=== PATIENT | male | born 1965 | race African-American/Black ===

== ENCOUNTER 2017-10-17 18:21 | Emergency (ER) | payer OTHER ==
[~2017-10-17] VITALS: Ht 177.8 cm; Wt 184.6 kg
[~2017-10-17 18:21] MED LIST: GLYB5TAB8
[2017-10-17 18:24] VITALS: BP 150/94
[2017-10-17 18:32] LABS: GLUCOSE,POINT OF CARE 209 MG/DL (70-110)
[2017-10-17] MEDS ORDERED: LISI-660 PO (18:33)
[2017-10-17] MEDS ORDERED: FURO20 PO (18:33)
[2017-10-17] MEDS ORDERED: ATOR10TA84 PO (18:33)
[2017-10-17] MEDS ORDERED: GABA-529 PO (18:33)
[2017-10-17] MEDS ORDERED: METO25 PO (18:33)
[2017-10-17] MEDS ORDERED: ASPI-556 PO (18:33)
[2017-10-17] MEDS ORDERED: KDUR10 PO (18:33)
[2017-10-17] MEDS ORDERED: HYDR-3291 PO (18:33)
[2017-10-17] MEDS ORDERED: METH10 PO (18:33)
[2017-10-17] MEDS ORDERED: TICA90TA PO (18:33)
== END 2017-10-17 19:15 | disposition left against medical advice (07) ==
LOC: EMS 18:22
DX: R07.9 Chest pain, unspecified (principal); R06.02 Shortness of breath; R42 Dizziness and giddiness; J45.909 Unspecified asthma, uncomplicated; E11.9 Type 2 diabetes mellitus without complications; Z53.21 Procedure and treatment not carried out due to patient leaving prior to being seen by health care provider
CPT/HCPCS: 93005; 99281

== ENCOUNTER 2025-01-08 10:39 | Inpatient (IN) | payer OTHER ==
[~2025-01-08] VITALS: Ht 177.8 cm; Wt 72.6 kg
[~2025-01-08 10:39] MED LIST changes: +ASPI-556 PO; +ATOR10TA PO; +FURO20TA5 PO; +GABA-1216 PO; -GLYB5TAB8; +GLYB5TAB8 PO; +HYDR-4398 PO; +LISI-892 PO; +METH10 PO; +METO25 PO; +POTA-92 PO; +TICA90TA PO
[2025-01-08 11:02] LABS: PLATELET COUNT (AUTO) 205 K/uL (150-450); RED BLOOD CELL COUNT(AUTO) 4.59 MIL/uL (4.50-5.90); RED CELL DISTRIBUTION WIDTH 14.0 % (11.5-14.5); WHITE BLOOD COUNT (AUTO) 5.0 K/uL (4.5-11.0)
[2025-01-08 11:10] LABS: CALCIUM, TOTAL 8.7 mg/dL (8.8-10.5); CREATININE 1.42 mg/dL (0.60-1.30); GLOMERULAR FILTR. RATE CALC > 60 mL/min (>60); GLUCOSE,RANDOM 131 mg/dL (70-110); SODIUM SERUM 142 mmol/L (136-145); UREA NITROGEN, BLOOD 18 mg/dL (7-18)
[2025-01-08 11:19] LABS: TROPONIN I-HIGH SENSITIVITY 14 ng/L (<76)
[2025-01-08] MEDS: MORPHINE SULFATE 4 MG/ML SYRINGE IVP ONE ×2 (11:24→13:04)
[2025-01-08] MEDS: ONDANSETRON HCL 4 MG/2 ML VIAL IVP ONE (11:24)
[2025-01-08] MEDS: METOPROLOL TARTRATE 25 MG TABLET PO ONE (11:38)
[2025-01-08] MEDS ORDERED: SODIUM CHLORIDE 0.9% 100 ML ONE (11:56)
[2025-01-08] MEDS ORDERED: IOHEXOL 350 MG/ML 100 ML VIAL ONE (11:56)
[2025-01-08] MEDS: NITROGLYCERIN 0.4 MG SUBLINGUAL TABLET #25 SL ONE (12:20)
[2025-01-08] MEDS: NITROGLYCERIN 2% (1 GM=INCH) OINTMENT PACKET TP ONE (12:20)
[2025-01-08] MEDS: SODIUM CHLORIDE 0.9% 250 ML IV ONE (12:23)
[2025-01-08 13:11] LABS: ASPARTATE AMINOTRANSFERASE 14.0 U/L (15-37); TOTAL PROTEIN, SERUM 7.6 g/dL (6.4-8.2)
[2025-01-08 13:16] LABS: TROPONIN I-HIGH SENSITIVITY 20 ng/L (<76)
[2025-01-08 17:00] VITALS: BP 111/79; PULSE 83; RESP 17; TEMP 97.3; O2SAT 99
[2025-01-08] MEDS: MORPHINE SULFATE 2 MG/ML SYRINGE IVP ONE ×2 (18:31→19:57)
[2025-01-08] MEDS ORDERED: ACETAMINOPHEN 325 MG TABLET PO PRN (18:45)
[2025-01-08] MEDS ORDERED: ONDANSETRON HCL 4 MG/2 ML VIAL IVP PRN (18:45)
[2025-01-08 20:00] VITALS: BP 149/98; PULSE 75; RESP 18; TEMP 97.5; O2SAT 95
[2025-01-08] MEDS: DOCUSATE SODIUM 100 MG CAPSULE PO SCH (20:04)
[2025-01-08] MEDS ORDERED: HEPARIN SODIUM,PORCINE 5,000 UNITS/ML VIAL IVP PRN ×2 (20:45)
[2025-01-08] MEDS: METOPROLOL TARTRATE 25 MG TABLET PO SCH (21:12)
[2025-01-08] MEDS: TICAGRELOR 90 MG TABLET PO SCH (21:13)
[2025-01-08 21:36] LABS: PLATELET COUNT (AUTO) 201 K/uL (150-450); RED BLOOD CELL COUNT(AUTO) 4.54 MIL/uL (4.50-5.90); RED CELL DISTRIBUTION WIDTH 13.9 % (11.5-14.5); WHITE BLOOD COUNT (AUTO) 5.9 K/uL (4.5-11.0)
[2025-01-08 21:51] LABS: TROPONIN I-HIGH SENSITIVITY 2808 ng/L (<76)
[2025-01-08] MEDS: HEPARIN SODIUM,PORCINE 5,000 UNITS/ML VIAL IVP ONE (22:07)
[2025-01-08] MEDS: HEPARIN SODIUM 25000 UNITS/D5W 250 ML IV PRN (22:08)
[2025-01-08] MEDS: MORPHINE SULFATE 2 MG/ML SYRINGE IVP PRN (23:31)
[2025-01-09] VITALS (9 sets, daily range): BP systolic 106–150; BP diastolic 60–87; PULSE 71–82; RESP 18–20; TEMP 97.3–98.7; O2SAT 96–100
[2025-01-09] MEDS ORDERED: HEPARIN SODIUM,PORCINE 5,000 UNITS/ML VIAL SQ SCH
[2025-01-09 06:32] LABS: PLATELET COUNT (AUTO) 200 K/uL (150-450); RED BLOOD CELL COUNT(AUTO) 4.52 MIL/uL (4.50-5.90); RED CELL DISTRIBUTION WIDTH 13.7 % (11.5-14.5); WHITE BLOOD COUNT (AUTO) 6.0 K/uL (4.5-11.0)
[2025-01-09 06:45] LABS: CALCIUM, TOTAL 8.5 mg/dL (8.8-10.5); CREATININE 1.27 mg/dL (0.60-1.30); GLOMERULAR FILTR. RATE CALC > 60 mL/min (>60); GLUCOSE,RANDOM 142 mg/dL (70-110); SODIUM SERUM 138 mmol/L (136-145); UREA NITROGEN, BLOOD 16 mg/dL (7-18)
[2025-01-09] MEDS: HEPARIN SODIUM,PORCINE 5,000 UNITS/ML VIAL IVP PRN (06:49)
[2025-01-09 07:59] LABS: TROPONIN I-HIGH SENSITIVITY 3629 ng/L (<76)
[2025-01-09] MEDS ORDERED: DEXTROSE 50%-WATER 25 GM/50 ML SYRINGE IVP PRN (08:45)
[2025-01-09] MEDS: ATORVASTATIN CALCIUM 10 MG TABLET PO SCH (08:55)
[2025-01-09] MEDS ORDERED: METHADONE HCL 10 MG TABLET PO SCH (09:00)
[2025-01-09] MEDS: GABAPENTIN 100 MG CAPSULE PO SCH (09:04)
[2025-01-09] MEDS: POTASSIUM CHLORIDE 10 MEQ ER TABLET PO SCH (09:04)
[2025-01-09] MEDS: ASPIRIN 81 MG DR TABLET PO SCH (09:04)
[2025-01-09 11:55] LABS: GLUCOMETER DEV NAME(LOC) 5S.2D; GLUCOSE,POINT OF CARE 212 MG/DL (70-110)
[2025-01-09] MEDS ORDERED: LIDOCAINE/PF 1% 30 ML VIAL ONE (13:29)
[2025-01-09] MEDS ORDERED: HEPARIN SODIUM 1000 UNITS/NS 1,000 ML ONE (13:29)
[2025-01-09] MEDS ORDERED: SODIUM BICARBONATE 50 MEQ/50 ML VIAL ONE (13:29)
[2025-01-09] MEDS ORDERED: IOHEXOL 300 MG/ML 100 ML VIAL ONE (13:29)
[2025-01-09] MEDS ORDERED: VERAPAMIL HCL 2.5 MG/ML 2 ML VIAL ONE (13:31)
[2025-01-09] MEDS ORDERED: NITROGLYCERIN 50 MG/D5% WATER 250 ML ONE (13:31)
[2025-01-09] MEDS: HEPARIN SODIUM,PORCINE 1,000 UNITS/ML 10 ML VIAL IARTER ONE (13:54)
[2025-01-09] MEDS: VERAPAMIL HCL 2.5 MG/ML 2 ML VIAL IARTER ONE (13:54)
[2025-01-09] MEDS: NITROGLYCERIN/D5W 50 MG/250 ML IV BOTTLE IARTER ONE (13:55)
[2025-01-09] MEDS: IOHEXOL 300 MG/ML 50 ML VIAL IARTER ONE (13:56)
[2025-01-09] MEDS: HEPARIN SODIUM 1000 UNITS/NS 1,000 ML IARTER ONE (13:57)
[2025-01-09] MEDS: IOHEXOL 300 MG/ML 100 ML VIAL IARTER ONE (13:58)
[2025-01-09] MEDS: LIDOCAINE 1% 30 ML/SOD BICARB 8.4% 4 ML SQ ONE (13:58)
[2025-01-09] MEDS: METOPROLOL SUCCINATE 25 MG ER TABLET PO SCH (14:30)
[2025-01-10] VITALS: BP 139/79; PULSE 81; RESP 20; TEMP 98.6; O2SAT 98
[2025-01-10 04:00] VITALS: BP 141/76; PULSE 89; RESP 20; TEMP 98.2; O2SAT 96
[2025-01-10] MEDS: INSULIN LISPRO 100 UNITS/ML SQ PRN (05:49)
[2025-01-10 06:30] LABS: PLATELET COUNT (AUTO) 188 K/uL (150-450); RED BLOOD CELL COUNT(AUTO) 4.61 MIL/uL (4.50-5.90); RED CELL DISTRIBUTION WIDTH 14.0 % (11.5-14.5); WHITE BLOOD COUNT (AUTO) 6.9 K/uL (4.5-11.0)
[2025-01-10 06:52] LABS: ASPARTATE AMINOTRANSFERASE 126.0 U/L (15-37); CALCIUM, TOTAL 8.8 mg/dL (8.8-10.5); CREATININE 1.47 mg/dL (0.60-1.30); GLOMERULAR FILTR. RATE CALC 60.0 mL/min (>60); GLUCOSE,RANDOM 149.0 mg/dL (70-110); SODIUM SERUM 139.0 mmol/L (136-145); TOTAL PROTEIN, SERUM 6.9 g/dL (6.4-8.2); UREA NITROGEN, BLOOD 21.0 mg/dL (7-18)
[2025-01-10 07:13] LABS: TROPONIN I-HIGH SENSITIVITY Greater than 25000 ng/L (<76)
[2025-01-10] MEDS ORDERED: HEPARIN SODIUM,PORCINE 5,000 UNITS/ML VIAL IVP PRN ×2 (07:45)
[2025-01-10 07:58] VITALS: BP 127/82; PULSE 82; RESP 18; TEMP 98; O2SAT 100
[2025-01-10] MEDS: ATORVASTATIN CALCIUM 40 MG TABLET PO SCH (08:34)
[2025-01-10] MEDS: HEPARIN SODIUM,PORCINE 5,000 UNITS/ML VIAL IVP ONE (08:37)
[2025-01-10] MEDS: HEPARIN SODIUM 25000 UNITS/D5W 250 ML IV PRN (08:40)
[2025-01-10] MEDS ORDERED: POTASSIUM CHL 10 MEQ/WATER 50 ML IV PRN (11:00)
[2025-01-10] MEDS ORDERED: POTASSIUM CHLORIDE 20 MEQ ER TABLET PO PRN (11:00)
[2025-01-10] MEDS ORDERED: ASPI-1444 PO (11:27)
[2025-01-10 11:36] VITALS: BP 127/66; PULSE 77; RESP 19; TEMP 98.2; O2SAT 99
[2025-01-10 12:21] LABS: GLUCOMETER DEV NAME(LOC) 5S.2D; GLUCOSE,POINT OF CARE 181 MG/DL (70-110)
[2025-01-10 12:21] LABS: GLUCOMETER DEV NAME(LOC) 5S.2D; GLUCOSE,POINT OF CARE 180 MG/DL (70-110)
[2025-01-10 12:21] LABS: GLUCOMETER DEV NAME(LOC) 5S.2D; GLUCOSE,POINT OF CARE 188 MG/DL (70-110)
[2025-01-10] MEDS ORDERED: ATOR40TA71 PO (12:48)
[2025-01-10] MEDS ORDERED: METO25XL PO (12:48)
== END 2025-01-10 14:00 | disposition home or self-care (01) | DRG 281 ==
LOC: EMS 11:11 → EDH 13:34 → 5S 16:57
PROVIDERS: ADMIT Internal Medicine; ATTEND Internal Medicine
PROC: 4A023N7 Measurement of Cardiac Sampling and Pressure, Left Heart, Percutaneous Approach (ICD-10-PCS; principal; 2025-01-09)
PROC: B2111ZZ Fluoroscopy of Multiple Coronary Arteries using Low Osmolar Contrast (ICD-10-PCS; 2025-01-09)
DX: I21.4 Non-ST elevation (NSTEMI) myocardial infarction (principal); T82.855A Stenosis of coronary artery stent, initial encounter; I12.9 Hypertensive chronic kidney disease with stage 1 through stage 4 chronic kidney disease, or unspecified chronic kidney disease; E11.22 Type 2 diabetes mellitus with diabetic chronic kidney disease; E66.01 Morbid (severe) obesity due to excess calories; E78.5 Hyperlipidemia, unspecified; G89.29 Other chronic pain; I25.10 Atherosclerotic heart disease of native coronary artery without angina pectoris; N18.30 Chronic kidney disease, stage 3 unspecified; Y83.8 Other surgical procedures as the cause of abnormal reaction of the patient, or of later complication, without mention of misadventure at the time of the procedure; Y92.89 Other specified places as the place of occurrence of the external cause; Z91.010 Allergy to peanuts; Z91.013 Allergy to seafood; Z68.23 Body mass index [BMI] 23.0-23.9, adult; Z79.02 Long term (current) use of antithrombotics/antiplatelets; Z91.018 Allergy to other foods
CPT/HCPCS: 71045; 71260; 72193; 74160; 80048; 80053; 80076; 82962; 83690; 83735; 83880; 84484; 85025; 85610; 85730; 93005; 93306; 96374; 96375; 96376; 99291; G0378; J1200; J1644; J2270; J2405; J3490; J7050; Q9967; 36415-L1; 36415-TC; Z7610